=== PATIENT | male | born 1945 | race Caucasian/White ===

== ENCOUNTER 2021-01-08 18:24 | Emergency (ER) | payer OTHER ==
[~2021-01-08] VITALS: Ht 172.7 cm; Wt 117.9 kg
[~2021-01-08 18:24] MED LIST: ATEN100 PO; ATOR40TA PO; ATORVASTATIN CA40 MG; Amlodipine Besyl5 MG; Aspirin EC81 MG; CENTRUM SILVER1 EAC2 PO; CLARITIN10 MG PO; CLOP75 PO; Doxazosin Mesyla4 MG; EPIPEN 2-P0.3 MG/0.3 IM; FURO20 PO; HYDCHL12.5; LISI20 PO; LISINOPRIL PO; METF500 PO; Minocycline HC100 MG PO; POTCHL20ER PO; Pepcid40 MG PO; Prednisone20 MG PO; UBID100 PO
[2021-01-08] MEDS ORDERED: LOSA25 PO (21:28)
== END 2021-01-08 21:33 | disposition left against medical advice (07) ==
LOC: ER 18:24
DX: T78.3XXA Angioneurotic edema, initial encounter (principal); I10 Essential (primary) hypertension; E78.5 Hyperlipidemia, unspecified; E11.9 Type 2 diabetes mellitus without complications; Z79.899 Other long term (current) drug therapy; Z79.82 Long term (current) use of aspirin; Z87.891 Personal history of nicotine dependence
CPT/HCPCS: 31575; 36415; 96372; 96374; 96375; 99285-25; A9270; J0171; J1200; J2001; J2930

== ENCOUNTER 2023-03-13 07:56 | Day surgery (SDC) | payer OTHER ==
[~2023-03-13 07:56] MED LIST changes: +LOSA25 PO
[2023-03-13 08:58] VITALS: BP 155/80
[2023-03-13] MEDS ORDERED: LOSA50 PO (09:13)
--- NOTE | 2023-03-13 09:15 | NUR ---
Ambulatory in Day Surgery History, Chart, Medications and Allergies reviewed before start of procedure. Pre-Op teaching done. Pt verbalizes understanding. Patient States Post-Procedure ride home has been arranged.
--- NOTE | 2023-03-13 09:29 | NUR ---
03/13/23 0929 [facility] History, Chart, Medications and Allergies reviewed before start of procedure.MONITOR INTACT WITH CONTINUOUS PULSE OXIMETRY, CONTINUOUS END TITAL CO2, AND INTERMITTENT BLOOD PRESSURE.3-LEAD EKG REVIEWED WITH PHYSICIAN PRIOR TO START OF PROCEDURE.O2 VIA N/C INTACT THROUGHOUT SEDATION/PROCEDURE. PROVIDING ANESTHESIA.
[2023-03-13 10:14] VITALS: BP 122/62
[2023-03-13 10:29] VITALS: BP 140/68
--- NOTE | 2023-03-13 10:44 | NUR ---
Patient up to Ambulate independently. Gait steady. Discharge instructions reviewed with patient. Patient verbalizes understanding. Copy given to patient to take home. Patient States Post-Procedure ride home has been arranged. Discharged via wheelchair to private car for ride home. PT DENIES PAIN.REPORTS READY TO GO HOME.
== END 2023-03-13 10:44 | disposition home or self-care (01) ==
LOC: ORSCMMR 07:56 → ORD 09:30 → ORSCMMR 09:30
PROVIDERS: Internal Medicine Gastroenterology
PROC: 0DBN8ZX Excision of Sigmoid Colon, Via Natural or Artificial Opening Endoscopic, Diagnostic (ICD-10-PCS; principal; 2023-03-13 09:30)
DX: Z12.11 Encounter for screening for malignant neoplasm of colon (principal); Z86.010 Personal history of colon polyps; K63.5 Polyp of colon; I10 Essential (primary) hypertension; G47.33 Obstructive sleep apnea (adult) (pediatric); E66.9 Obesity, unspecified; Z87.891 Personal history of nicotine dependence; Z68.41 Body mass index [BMI] 40.0-44.9, adult; Z79.82 Long term (current) use of aspirin; Z79.899 Other long term (current) drug therapy
CPT/HCPCS: 88305; J2704; J7120

== ENCOUNTER → 2024-11-01 | Outpatient (CLI) | payer OTHER ==
[~2024-11-01] MED LIST changes: +LOSA50 PO
== END ==
LOC: LAB 15:53 → LAB SHORT 15:53
DX: M79.672 Pain in left foot (principal)
CPT/HCPCS: 84550